=== PATIENT | female | born 1980 | race Caucasian/White ===

== ENCOUNTER 2017-04-15 23:53 | Inpatient (IN) | payer OTHER, MEDICAID ==
[~2017-04-15 23:53] MED LIST: COD LIVER OIL1 CAP; COD LIVER OIL1 ML MC; IBUPROFEN200 M1 PO; PRENATAL1 TAB; PROGESTERONE100 MG PO; PROMETRIUM200 MG PO
[2017-04-16] MEDS ORDERED: PRENA1 CHEW TA1.4 M1 PO (00:21)
[2017-04-17 06:29] LABS: BASO % 0.2 % (0-2); EOS % 1.5 % (0-7); EOSINOPHIL ABSOLUTE COUNT 0.2 tho/cmm (0.0-0.7); HCT-HEMATOCRIT 32.6 % (34.0-49.0); HGB-HEMOGLOBIN 11.1 gm/dl (12.0-15.5); IMMATURE GRANULOCYTES ABSOLUTE 0.05 tho/cmm (0-0.03); IMMATURE GRANULOCYTES PERCENT 0.4 % (0-0.3); LYMPH % 19.4 % (20-45); LYMPH ABSOLUTE COUNT 2.2 tho/cmm (0.8-4.5); MCH (MEAN CORPUSCULAR HGB) 30.7 pg (28.0-32.0); MCV (MEAN CELL VOLUME) 90.3 fl (82.0-96.0); MEAN PLATELET VOLUME 10.6 cmc (9.4-12.4); MONO % 7.5 % (0-12); MONOCYTE ABSOLUTE COUNT 0.9 tho/cmm (0.0-1.2); NEUTROPHIL ABSOLUTE COUNT 8.1 tho/cmm (1.6-8.0); NEUTROPHIL-AUTOMATED 8.1 tho/cmm (1.6-8.0); PLATELET COUNT 142 tho/cmm (150-450); RED BLOOD COUNT 3.61 mil/cmm (4.00-5.20); RED CELL DISTRIBUTION WIDTH 12.8 % (12.4-16.4); WHITE BLOOD COUNT 11.4 tho/cmm (4.0-10.0)
[2017-04-18] MEDS ORDERED: IBUPROFEN800 M1 PO (06:13)
[2017-04-18] MEDS ORDERED: PERCOCET 5-3251 EACH PO (06:13)
== END 2017-04-18 17:15 | DRG 775 ==
LOC: LDR 23:53 → OBGD 04-16 17:51
PROVIDERS: ADMIT Family Medicine
PROC: 10E0XZZ Delivery of Products of Conception, External Approach (ICD-10-PCS; principal; 2017-04-16)
DX: O42.02 Full-term premature rupture of membranes, onset of labor within 24 hours of rupture (principal); Z37.0 Single live birth; Z3A.37 37 weeks gestation of pregnancy
CPT/HCPCS: J2590